=== PATIENT | female | born 1955 | race Caucasian/White ===

== ENCOUNTER 2018-04-06 09:23 | Emergency (ER) | payer MEDICARE, MEDICAID ==
[2018-04-06 09:34] VITALS: BP 122/62
--- NOTE | 2018-04-06 10:31 | UC ---
Skin Complaint HPI - HPI Summary HPI Summary: 62 y/o MR female presents to the urgent care accompany by group social worker from [facility] c/o RT hand swelling w/ some drainage s/p insect bite about 1 week ago. child welfare worker states Pt has been scratching insect bite and now is worsen. A band-aid was placed over wound and caused an abrasion since now one area is open. Pt states pain is 5/10 and it itches a lot. She has Benadryl PO at the center, but can only be given to Pt only if Dr orders it. Pt deneis fever, SOB, throat tightening, abdominal pain, N/V/D. - History of Current Complaint Chief Complaint: UCSkin Time Seen by Provider: 04/06/18 10:01 Stated Complaint: HAND INJURY Hx Obtained From: Patient, Family/Office Employee - child welfare worker from [facility] Mrs Godoy. ?: No Onset/Duration: Sudden Onset, Lasting Weeks - 1 week, Still Present, Worse Since - yesterday Skin Exposure Onset/Duration: Weeks Ago - 1 week Timing: Constant Onset Severity: Moderate Current Severity: Moderate Pain Intensity: 2 Pain Scale Used: 0-10 Numeric Location: Discrete, Hand (Right) Character: Swelling, Pruritus, Redness, Raised, Painful Aggravating Factor(s): Touch Alleviating Factor(s): Nothing Associated Signs & Symptoms: Positive: Rash, Drainage, Tenderness. Negative: Fever, Chills, Hoarseness, Throat Tightening Related History: Possible Reaction to: Insect - Allergy/Home Medications Allergies/Adverse Reactions: Allergies Allergy/AdvReac Type Severity Reaction Status Date / Time BEE STINGS Allergy Unknown Uncoded 04/06/18 09:34 Reaction Details gold Allergy Unknown Uncoded 04/06/18 09:34 Reaction Details Home Medications: Home Medications Calcium Carbonate/Vitamin D3 [Calcium 600 + Vit D Tablet] 1 each PO BID [History Confirmed 04/06/18] Calcium Polycarbophil [Fiber Lax] 625 mg PO BID 04/06/18 [History Confirmed ] [place]-3 Fatty Acids/Fish Oil [Fish Oil 1,000 mg Capsule] 1 each PO DAILY [History Confirmed 04/06/18] Polyethylene Glycol 3350* [Miralax*] 17 gm PO DAILY 04/06/18 [History Confirmed 04/06/18] Review of Systems Constitutional: Negative Skin: Rash - RT hand s/p isect bite Eyes: Negative ENT: Negative Respiratory: Negative Cardiovascular: Negative Gastrointestinal: Negative Genitourinary: Negative Motor: Negative Neurovascular: Negative Musculoskeletal: Other: - RT hand pain s/p insect bite Neurological: Negative Psychological: Negative Is Patient Immunocompromised?: No All Other Systems Reviewed And Are Negative: Yes PMH/Surg Hx/FS Hx/Imm Hx Previously Healthy: Yes Cardiovascular History: Hypertension Other GI/ History: Constipation Psychological History: Schizophrenia - Surgical History Surgical History: Yes Surgery Procedure, Year, and Place: bilateral cataract surgery - Family History Known Family History: Positive: Unknown - child welfare worker states unkone FMHX Negative: Blood Disorder - Social History Occupation: Disabled Lives: Detention Alcohol Use: None Substance Use Type: None Smoking Status (MU): Never Smoked Tobacco - Immunization History Vaccination Up to Date: Yes Physical Exam - Summary Physical Exam Summary: Vital Signs Reviewed: Yes General: well developed, well nourished MR pathak sitting in the examining table w/o any apparent distress. Eyes: Positive: Conjunctiva Clear - PERRLA, EOMI ENT: Positive: Normal ENT inspection, Hearing grossly normal, Pharynx normal, TMs normal Neck: Positive: Supple, Nontender, No Lymphadenopathy Respiratory: Positive: Chest nontender, Lungs clear, Normal breath sounds Cardiovascular: Positive: RRR, No Murmur, Pulses Normal Abdomen Description: Positive: Nontender, No Organomegaly, Soft. Negative: CVA Tenderness (R), CVA Tenderness (L) Bowel Sounds: Positive: Present Musculoskeletal: Positive: Strength Intact, ROM Intact, No Edema Neurological Exam: Normal Psychological Exam: Normal Skin: Positive: rashes - lateral side of RT hand w/ 2 insect bites w/ surrounding erythematous patches w/ indistinct borders, warm to touch, swelling and tender to palpation. One is open w/ crusting s/p excoriation Triage Information Reviewed: Yes Vital Signs: Initial Vital Signs Temp 97.8 F 04/06/18 09:28 Pulse 98 04/06/18 09:28 Resp 16 04/06/18 09:28 BP 122/62 04/06/18 09:28 Pulse Ox 97 04/06/18 09:28 Course/Dx - Course Course Of Treatment: 62 y/o MR female presents to the urgent care accompany by group social worker from [facility] c/o RT hand swelling w/ some drainage s/p insect bite about 1 week ago. child welfare worker states Pt has been scratching insect bite and now is worsen. A band-aid was placed over wound and caused an abrasion since now one area is open. Pt states pain is 5/10 and it itches a lot. She has Benadryl PO at the center, but can only be given to Pt only if Dr orders it. Pt deneis fever, SOB, throat tightening, abdominal pain, N/V/D. Hx obtained. Pt w/ RT hand cellulitis s/p insect bite.wound cleaned w/ iodine swabs and bacitracin applied over wound and covered w/ sterile gauze. Pt Rx Keflex PO, and topical Bacitracin. rash demarcated with a skin marker and child welfare worker Advised if rash doubles in size and if she develops fever to go to the ER for further treatment. Also advised to start Benadryl PO for itchiness. child welfare worker understood and agreed. - Differential Diagnoses - Skin Complaint Differential Diagnoses: Abscess, Cellulitis, Contact Dermatitis, Local Allergic Reaction, MRSA, Tick Born Illness, Tinea, Urticaria, Other - insect bite - Diagnoses Provider Diagnoses: 1- RT hand cellulitis s/p insect bite Discharge - Sign-Out/Discharge Documenting (check all that apply): Patient Departure - D/C home All imaging exams completed and their final reports reviewed: Yes - Discharge Plan Condition: Stable Disposition: HOME Prescriptions: Bacitracin OINTMENT* 1 applic TOPICAL BID #1 tube Cephalexin CAP* [Keflex CAP*] 500 mg PO QID #28 cap Patient Education Materials: Cellulitis (ED) Referrals: Sumi Barroso MD [Primary Care Provider] - 3 Days Additional Instructions: 1-Please take full course of Antibiotic. Apply Bacitracin oint as directed on affected areas. Keep wound dry and clean. 2- If redness and swelling doubles in size after 48 hrs of taking antibiotic and fever develops please go to the ER immediately. 3- Please take Benadryl 25mg PO TID prn to alleviate pruritus. 4-Please F/u with your PCP in 3 days if not improvement of symptoms for further evaluation and treatment. - Billing Disposition and Condition Condition: STABLE Disposition: Home
== END 2018-04-06 10:45 | disposition home or self-care (01) ==
LOC: UCEAST 09:23
DX: S60.561A Insect bite (nonvenomous) of right hand, initial encounter (principal); L03.818 Cellulitis of other sites; L03.113 Cellulitis of right upper limb; W57.XXXA Bitten or stung by nonvenomous insect and other nonvenomous arthropods, initial encounter; Y93.9 Activity, unspecified; Y92.9 Unspecified place or not applicable; I10 Essential (primary) hypertension; K59.00 Constipation, unspecified
CPT/HCPCS: 99212; G0463

== ENCOUNTER 2018-04-14 15:17 | Emergency (ER) | payer MEDICARE, MEDICAID ==
[2018-04-14 15:51] VITALS: BP 123/75
[2018-04-14] MEDS ORDERED: DOXYcycline CAP(*) 100 MG PO ONE (16:13)
--- NOTE | 2018-04-14 16:14 | UC ---
Skin Complaint HPI - HPI Summary HPI Summary: Pt is a 62 year old female presenting to the with her advanced nursing professor. Per her advanced nursing professor, a couple of weeks ago [place] and ended up with a lot of mosquito bites that got infected. One on her R hand turned into cellulitis. She is finished with her QID cephalexin from her last visit. She now has a bite on her forehead that has similarly swelled up. She was itching it today and it may have opened up. 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 Onset/Duration: Lasting Weeks - since [place] weeks ago, Still Present Skin Exposure Onset/Duration: Weeks Ago Timing: Constant Onset Severity: Mild Current Severity: Mild Pain Intensity: 0 Pain Scale Used: 0-10 Numeric Location: Face - middle of forehead Character: Swelling, Redness, Raised Related History: Insect Bite/Sting - multiple from [place] weeks ago - Allergy/Home Medications Allergies/Adverse Reactions: Allergies Allergy/AdvReac Type Severity Reaction Status Date / Time BEE STINGS Allergy Unknown Uncoded 04/14/18 15:52 Reaction Details gold Allergy Unknown Uncoded 04/14/18 15:52 Reaction Details Review of Systems Constitutional: Negative - fever Skin: Other - puncture/bite in middle of forehead All Other Systems Reviewed And Are Negative: Yes PMH/Surg Hx/FS Hx/Imm Hx Previously Healthy: No - hx of cellulitis Endocrine History: Other Other Endocrine History: hyperlipidemia - Surgical History Surgical History: Yes Surgery Procedure, Year, and Place: bilateral cataract surgery - Family History Known Family History: Positive: Unknown - leadite worker states unkone FMHX Negative: Blood Disorder - Social History Alcohol Use: None Substance Use Type: None Smoking Status (MU): Never Smoked Tobacco - Immunization History Vaccination Up to Date: Yes Physical Exam - Summary Physical Exam Summary: Appearance: Well-appearing, Well-nourished Skin: Small abrasion on dorsal surface of R hand at the MCP joint, approx. 1cm around, reported to be much improved from prior visit. Eyes: Normal ENT: Normal Head: Small punctate lesion in middle of forehead with surrounding induration and redness c/w cellulitis. No preorbital swelling bilaterally. Neck: Supple, nontender Respiratory: Clear to auscultation Cardiovascular: Normal S1, S2. No murmurs. Normal distal pulses in tibial and radial bilaterally. Abdomen: Soft, nontender Musculoskeletal: Normal, Strength/ROM Intact Neurological: Normal, A&Ox3 Psychiatric: Normal General: No acute distress Triage Information Reviewed: Yes Vital Signs: Initial Vital Signs Temp 98.7 F 04/14/18 15:46 Pulse 87 04/14/18 15:46 Resp 16 04/14/18 15:46 BP 123/75 04/14/18 15:46 Pulse Ox 99 04/14/18 15:46 Vital Signs Reviewed: Yes Re-Evaluation - Re-Evaluation 1 Re-Evaluation Time: 16:19 Change: Unchanged - Explained to social services aide that the doxycycline would interact with one of the pt's laxatives, so suggested substituting the laxative with someting else. Course/Dx - Course Course Of Treatment: History and physical consistent with cellulitis. No systemic signs of infection, patient started on course of antibiotics and instructed to follow up with primary care physician. Teachers' Aide agrees to and understands discharge instructions. - Diagnoses Provider Diagnoses: Cellulitis of the face Discharge - Sign-Out/Discharge Documenting (check all that apply): Patient Departure All imaging exams completed and their final reports reviewed: No Studies - Discharge Plan Condition: Stable Disposition: HOME Prescriptions: DOXYcycline CAP(*) [DOXYcycline 100MG CAP(*)] 100 mg PO BID #14 cap Patient Education Materials: Cellulitis (DC) Referrals: Sumi Barroso MD [Primary Care Provider] - Additional Instructions: PLEASE FINISH MEDICATION DIRECTED. PLEASE RETURN IMMEDIATELY FOR ANY WORSENING OR CONCERNING SYMPTOMS. PLEASE MAKE AN APPOINTMENT TO SEE HER PRIMARY CARE DOCTOR WITHIN 1 WEEK. PLEASE DISCONTINUE FIBER-LAX TEMPORARILY UNTIL DOXYCYCLINE IS FINISHED - Billing Disposition and Condition Condition: STABLE Disposition: Home - Attestation Statements Document Initiated by Scribe: Yes Documenting Scribe: Jeanne Rosas Provider For Whom Sendy is Documenting (Include Credential): Steven Solares MD. Scribe Attestation: Jeanne Vee, scribed for Steven Solares MD. on 04/14/18 at 2009. Scribe Documentation Reviewed: Yes Provider Attestation: The documentation as recorded by the Jeanne ibrahim accurately reflects the service I personally performed and the decisions made by Steven song MD.
== END 2018-04-14 16:40 | disposition home or self-care (01) ==
LOC: UCEAST 15:17
DX: L03.211 Cellulitis of face (principal); Z91.038 Other insect allergy status; Z91.09 Other allergy status, other than to drugs and biological substances
CPT/HCPCS: 99212; A9270-GY; G0463

== ENCOUNTER 2022-05-21 07:30 | Observation (INO) ==
[2022-06-29] MEDS ORDERED: Ondansetron 4 mg VIAL 2 MG/ML 2 ml VIAL IV PRN (09:16)
[2022-06-29] MEDS ORDERED: Naloxone 0.4 mg VIAL 0.4 mg/ml 1 ml VIAL IV PRN (09:16)
[2022-06-29] MEDS ORDERED: fentaNYL 100 mcg/2 ml 50 MCG/ML VIAL IV PRN (09:16)
[2022-06-30] MEDS ORDERED: Buffered Lidocaine 1% SYRIN 1 ml INTRADERM ONE (06:00)
[2022-06-30] MEDS ORDERED: Lactated Ringers 1000 ml BAG 1,000 ML IV SCH (06:00)
[2022-07-02] MEDS ORDERED: Bupivacaine 0.5% SDV PF 30ML VIAL ONE (06:34)
[2022-07-02] MEDS ORDERED: Midazolam 2 mg/2 ml VIAL 1 mg/ml 2 ml VIAL (2 mg) ONE ×2 (06:34→07:01)
[2022-07-02] MEDS ORDERED: Dexamethasone IV 4 MG/ML VIAL 1 ml VIAL ONE (06:34)
[2022-07-02] MEDS ORDERED: ceFAZolin 2 GM in NS PREMIX 2 GM/100 ML BAG IVPB ONE (06:55)
[2022-07-02] MEDS ORDERED: fentaNYL 100 mcg/2 ml 50 MCG/ML VIAL ONE (07:01)
[2022-07-02] MEDS ORDERED: Lidocaine 1% MPF 5 ML VIAL ONE (07:13)
[2022-07-02] MEDS ORDERED: Vancomycin 1,000 MG VIAL ONE (07:19)
[2022-07-02] MEDS ORDERED: Propofol 10 MG/ML 20 ML BTL ONE (10:07)
[2022-07-02] MEDS ORDERED: Ondansetron 4 mg VIAL 2 MG/ML 2 ml VIAL IV PRN (11:09)
[2022-07-02] MEDS ORDERED: Ondansetron ODT 4 mg TAB 4 MG TAB PO PRN (11:09)
[2022-07-02] MEDS ORDERED: Morphine 2 MG/ML SYRINGE IV PRN (11:09)
[2022-07-02] MEDS ORDERED: Lactulose 30 ml UDC PO PRN (11:09)
[2022-07-02] MEDS ORDERED: Magnesium Hydroxide LIQ 30 ML UDC PO PRN (11:09)
[2022-07-02] MEDS: Lactated Ringers 1000 ml BAG 1,000 ML IV SCH (13:41)
[2022-07-02] MEDS: ceFAZolin 1 GM ADVAN 1 GM in NS 0.9% 50 ML 50 ML IVPB SCH (16:55)
[2022-07-02] MEDS: Calcium Polycarbophil 625mg TB PO SCH (22:26)
[2022-07-02] MEDS: Magnesium Hydroxide LIQ 30 ML UDC PO SCH (22:28)
[2022-07-02] MEDS: PTO: ICOSAPENT ETHYL 1 GM CAPSULE (NF) PO SCH (22:29)
[2022-07-03] MEDS: Lactated Ringers 1000 ml BAG 1,000 ML IV SCH (00:46)
[2022-07-03] MEDS: ceFAZolin 1 GM ADVAN 1 GM in NS 0.9% 50 ML 50 ML IVPB SCH ×2 (00:53→08:15)
[2022-07-03 06:07] LABS: Hematocrit 29 % (35-47); Hemoglobin 9.3 g/dL (12.0-16.0); Platelet Count 142 10^3/uL (150-450)
[2022-07-03 06:26] LABS: Calcium 8.6 mg/dL (8.6-10.3); Potassium 4.5 mmol/L (3.5-5.0); eGFR CKD-EPI 85.8 (>60)
[2022-07-03] MEDS: Magnesium Hydroxide LIQ 30 ML UDC PO SCH (08:14)
[2022-07-03] MEDS: PTO: Linaclotide 290 mcg CAP (NF) PO SCH (08:14)
[2022-07-03] MEDS: Vitamin THERAPEUTIC TAB PO SCH (08:16)
[2022-07-03] MEDS: Calcium Polycarbophil 625mg TB PO SCH ×2 (08:16→22:53)
[2022-07-03] MEDS: Mirabegron 25 mg ER TAB (NF) PO SCH (09:23)
[2022-07-03] MEDS: PTO: ICOSAPENT ETHYL 1 GM CAPSULE (NF) PO SCH (22:55)
[2022-07-04] MEDS: Magnesium Hydroxide LIQ 30 ML UDC PO SCH ×2 (00:06→08:04)
[2022-07-04 06:07] LABS: Hematocrit 29 % (35-47); Hemoglobin 9.1 g/dL (12.0-16.0); Mean Platelet Volume 9.5 fL (7.4-10.4); Platelet Count 142 10^3/uL (150-450)
[2022-07-04] MEDS: PTO: Linaclotide 290 mcg CAP (NF) PO SCH (08:04)
[2022-07-04] MEDS: Calcium Polycarbophil 625mg TB PO SCH (08:05)
[2022-07-04] MEDS: Vitamin THERAPEUTIC TAB PO SCH (08:06)
[2022-07-04] MEDS: Mirabegron 25 mg ER TAB (NF) PO SCH (09:32)
[2022-07-04 12:15] VITALS: BP 101/68
== END 2022-07-04 13:55 | disposition home or self-care (01) ==
LOC: AA 07-02 05:43 → INTOOBSV 07-02 05:43 → SSU 07-02 13:06
PROVIDERS: ADMIT Orthopaedic Surgery; ATTEND Orthopaedic Surgery